=== PATIENT | male | born 1990 | race Caucasian/White ===

== ENCOUNTER 2016-03-29 18:30 | Emergency (ER) | payer BC, OTHER ==
[~2016-03-29] VITALS: Ht 180.3 cm; Wt 99.8 kg
[2016-03-29 18:53] LABS: ABSOLUTE NEUTROPHILS 6.8 thou/uL (1.4-8.2); BASOPHILS 0.4 % (0.0-2.0); EOSINOPHILS 0.4 % (0.0-3.0); HEMATOCRIT 42.8 % (42.0-52.0); HEMOGLOBIN 15.1 gm/dL (14.0-18.0); LYMPHOCYTES 23.9 % (24.0-44.0); MCH 31.4 pg (26.0-34.0); MCHC 35.2 % (28.0-37.0); MCV 89.3 fL (80.0-100.0); MONOCYTES 4.8 % (1.0-8.0); PLATELET COUNT 190 thou/uL (150-400); POLYS 70.5 % (36.0-66.0); RDW 12.4 % (10.5-14.5); WBC 9.7 thou/uL (4.0-11.0)
[2016-03-29 18:53] LABS: URINE BILIRUBIN NEGATIVE (Negative); URINE BLOOD 3+ (Negative); URINE COLOR YELLOW; URINE GLUCOSE-RANDOM* NEGATIVE (Negative); URINE KETONES NEGATIVE (Negative); URINE LEUKOCYTES-REFLEX NEGATIVE (Negative); URINE PROTEIN (DIPSTICK) NEGATIVE (Negative); URINE UROBILINOGEN 0.2 E.U./dl (0.2-1.0)
[2016-03-29 19:06] LABS: MANUAL DIFF NO
[2016-03-29 19:08] LABS: CALCIUM 9.1 mg/dL (8.5-10.1); CREATININE 0.8 mg/dL (0.6-1.3)
[2016-03-29 19:14] LABS: CASTS None Seen /LPF (None Seen); CRYSTALS None Seen /LPF (None Seen); SQUAMOUS None Seen /LPF (0-3); URINE RBC >20 Many /HPF (0-2); URINE WBC-REFLEX None Seen /HPF (0-5)
[2016-03-29] MEDS ORDERED: NORCO 5-325 TA1 EACH PO (19:49)
[2016-03-29 19:53] VITALS: BP 135/76
== END 2016-03-29 19:54 | disposition home or self-care (01) ==
LOC: ER 18:30
PROVIDERS: Emergency Medicine
DX: N20.0 Calculus of kidney (principal); F17.210 Nicotine dependence, cigarettes, uncomplicated